=== PATIENT | male | born 1985 | race Caucasian/White ===

== ENCOUNTER 2017-02-11 12:33 | Emergency (ER) | payer SELFPAY ==
[2017-05-18] MEDS ORDERED: LAMICTAL150 MG PO (13:19)
[2017-05-18] MEDS ORDERED: IBU800 PO (13:19)
[2017-05-18] MEDS ORDERED: ULTRAM50 PO (13:20)
== END 2017-02-11 13:48 | disposition left against medical advice (07) ==
LOC: ER 12:33
DX: S00.01XA Abrasion of scalp, initial encounter (principal); Z88.0 Allergy status to penicillin; Z88.5 Allergy status to narcotic agent; Z88.8 Allergy status to other drugs, medicaments and biological substances; W01.198A Fall on same level from slipping, tripping and stumbling with subsequent striking against other object, initial encounter; Y92.488 Other paved roadways as the place of occurrence of the external cause
CPT/HCPCS: 99284; A9270-GY